=== PATIENT | male | born 1960 | race Caucasian/White ===

== ENCOUNTER 2022-09-16 09:43 | Observation (INO) ==
--- NOTE | 2022-08-18 20:48 | PAT Medication Instructions ---
Medication Instructions Date of Service August 18, 2022 Home Medications aspirin 81 mg tablet,delayed release (Adult Aspirin Regimen) 81 mg PO QPM atorvastatin 20 mg tablet 20 mg PO PM azelastine 137 mcg (0.1 %) nasal spray aerosol 1 spray intranasal QPM digoxin 125 mcg (0.125 mg) tablet 125 mcg PO QPM lisinopril 10 mg tablet 10 mg PO QPM metoprolol succinate 50 mg capsule sprinkle, ext. release 24 hr 50 mg PO QPM montelukast 10 mg tablet 10 mg PO PM Take evening before surgery aspirin 81 mg tablet,delayed release (Adult Aspirin Regimen) 81 mg PO QPM (continue as normal unless told otherwise by surgeon) atorvastatin 20 mg tablet 20 mg PO PM azelastine 137 mcg (0.1 %) nasal spray aerosol 1 spray intranasal QPM digoxin 125 mcg (0.125 mg) tablet 125 mcg PO QPM lisinopril 10 mg tablet 10 mg PO QPM metoprolol succinate 50 mg capsule sprinkle, ext. release 24 hr 50 mg PO QPM montelukast 10 mg tablet 10 mg PO PM Other Notes If you have any questions please call us at [phone] or [phone] or [phone] or [phone]
--- NOTE | 2022-08-24 15:33 | Anesthesiology Consultation ---
Date of Service August 24, 2022 Assessment & Plan (1) Encounter for pre-operative examination: - cardiology 07/14/22 [facility]: "...longstanding persistent atrial fibrillation...normal LV systolic function...no difficulty walking up hills at his home...good symptom and rate control...symptoms are stable...CHADS VAS score 1 risk of stroke low..." Outpatient joint assessment: Patient is currently scheduled for inpatient pathway. If re-evaluated pending system levels during current pandemic/surgeon requests outpatient pathway, patient is not acceptable candidate for outpatient joint program from anesthesia standpoint and pt/family. Chart Review Chart Review: Acceptable Risk for Surgery and Patient seen in Pre Admission Testing Teaching & Discussion Pre-Anesthesia Teaching/Discussion Notes: Instructed NPO after midnight before surgery, except medications with 15 cc of water. Medication instructions provided according to the PAT guidelines. History Surgery Operation Date: 09/16/22 07:00 Proposed Procedures p Right Total Knee Arthroplasty - Kaz Chery MD Height/Weight Height: 5 ft 10.5 in Weight: 97.522 kg Allergies Allergy/AdvReac Type Severity Reaction Status Date / Time Penicillins Allergy Verified 08/18/22 14:58 Medications Home Medications Medication Instructions Recorded Confirmed Last Taken aspirin 81 mg tablet,delayed 81 mg PO QPM 06/24/20 08/18/22 Unknown release (Adult Aspirin Regimen) atorvastatin 20 mg tablet 20 mg PO PM 08/18/22 08/18/22 Unknown azelastine 137 mcg (0.1 %) nasal 1 spray intranasal QPM 08/18/22 08/18/22 Unknown spray aerosol digoxin 125 mcg (0.125 mg) tablet 125 mcg PO QPM 08/18/22 08/18/22 Unknown lisinopril 10 mg tablet 10 mg PO QPM 08/18/22 08/18/22 Unknown metoprolol succinate 50 mg capsule 50 mg PO QPM 08/18/22 08/18/22 Unknown sprinkle, ext. release 24 hr montelukast 10 mg tablet 10 mg PO PM 08/18/22 08/18/22 Unknown Past Medical History Medical History (Updated 08/24/22 @ 15:44 by Gillian Hernandez PA-C) A-fib Follows with [facility] Cardiology, chronic palpitations without associated dizziness or lightheadedness HLD (hyperlipidemia) HTN (hypertension) controlled, stable per pt Prediabetes Patient denies h/o stroke, seizures, heart attack, heart failure, blood clots or blood transfusions. Exercise / Class Metabolic Activity II 4-5 Yardwork/Stairs/Walk up hill (denies CP or SOB with 1 FOS) Past Family History Family History Sister PONV (postoperative nausea and vomiting) Other Atrial fibrillation Past Surgical History Surgical History History of colonoscopy History of hernia surgery History of tonsillectomy Hx of right knee surgery Past Anesthesia History No Hx of Anesthesia Complications and No Family Hx of Anesthesia Complications History of PONV No Hx of PONV and Hx of Motion Sickness Social History Smoking Status: Former smoker Do You Dip or Chew Tobacco: No (quit 20 years ago) Smoking End Date: >30 years ago Hx Alcohol Use: Yes alcohol intake frequency: holidays/special occasions only Hx Substance Use: No substance use type: does not use Review of Systems Patient denies chest pain, shortness of breath, dyspnea on exertion, snoring, witnessed apneas, reflux, fever, chills, cough, or wheezing. Physical Exam Vital Signs Vitals BP 133/66 P 85 TEMP 98.3 SP02 98% on RA RESP 18 Physical Full cervical extension range of motion without pain TMD 3.5 finger breadths Mallampati Score 2 Dentition: intact, one crown-pt unsure of location; denies chipped or loose teeth, implants or bridges Lungs: normal respiratory effort. Clear throughout to auscultation, no adventitious breath sounds Cardiac: regular rate and rhythm, no murmurs noted Carotid arteries: negative bruit bilat Lab Results Anesthesia Preop Results Results Anesthesia Widget: WBC 7.35 K/ul (4.8-10.8) 08/24/22 Hgb 14.4 g/dl (14.0-18.0) 08/24/22 Hct 40.7 % (40.1-51.0) 08/24/22 Plt 198 K/uL (130-400) 08/24/22 Na 138 mmol/L (136-145) 08/24/22 K 3.9 mmol/L (3.5-5.1) 08/24/22 Cl 102 mmol/L (98-107) 08/24/22 CO2 31 mmol/L (21-32) 08/24/22 BUN 15 mg/dl (6-23) 08/24/22 Creat 0.88 mg/dl (0.6-1.4) 08/24/22 Glucose Level 89 mg/dl (70-99(Fasting)) 08/24/22 PT 10.9 Seconds (9.0-12.0) 08/24/22 PTT 24.4 Seconds (21.0-31.0) 08/24/22 INR 1.0 (0.9-1.1) 08/24/22 Blood Type A Negative 08/24/22 Antibody Screen NEGATIVE 08/24/22 Testing Electrocardiogram Date: 08/24/22 Afib, rate 76 bpm Left axis deviation Chest X-Ray Date: 08/24/22 The lungs are clear. Cardiac silhouette is normal in size. No pleural effusions. No pneumothorax. IMPRESSION: No acute process. Echocardiogram Date: 07/14/22 EF 55-59% No LV wall motion abnormalities Biatrial enlargement from afib Mild tricuspid regurgitation Stress Test Date: 12/19/19 Exercise Negative for inducible ischemia MPHR 111% METS 6 EF 64% COVID-19 Risk Screen Screening Information COVID-19 Screen Date: 08/24/22 Exposure 21 Days Family/Household +COVID Last 21 Days: No Exposure 10 Days Any COVID Exposure Last 10 Days: No Symptoms Last 10 Days Experienced COVID Sx Last 10 Days: No + COVID 0-90 Days COVID + in Last 0-90 Days: No
--- NOTE | 2022-09-11 18:14 | History and Physical Report ---
CHIEF COMPLAINT: Persistent progressive right knee pain and discomfort. HISTORY OF PRESENT ILLNESS: The patient is a 62-year-old gentleman I have been following for the pas t 11 years for knee arthritis. He has a history of right open meniscectomy in 1976. For the past 11 years, we have been treating him successfully with injections and medicines. This has become less s uccessful recently. He has got increased pain in his knee. It is global pain. The more he is up an d about, the more it hurts. Limps more as the day goes on. He has got catching and locking that get s pretty severe to be painful at times. Would like to have the knee fixed. PAST MEDICAL HISTORY: Significant for: 1. Long-term atrial fibrillation, on baby aspirin only. 2. Elevated cholesterol. 3. Hypertension. PAST SURGICAL HISTORY: Including. 1. Herniorrhaphy. 2. Right knee open meniscectomy in 1976. 3. Tonsillectomy. ALLERGIES: PENICILLIN, WHICH CAUSES HIVES A KID. CURRENT MEDICATIONS: Include: 1. Digoxin. 2. Lisinopril. 3. Metoprolol. 4. Atorvastatin. 5. Baby aspirin. 6. Unspecified nasal spray. 7. Singulair. SOCIAL HISTORY: A 62-year-old male. From [place]. Two drinks per week. Does not smoke. FAMILY HISTORY: Noncontributory. REVIEW OF SYSTEMS: Negative for diabetes. No chest pain, shortness of breath. No history of DVT or PE. He does have longstanding atrial fibrillation, on rate control with metoprolol. No anticoagula tion of the baby aspirin. PHYSICAL EXAMINATION: GENERAL: Shows a pleasant middle-aged male. Looks to be good health. HEENT: Benign. NECK: Supple. No lymphadenopathy. LUNGS: Clear to auscultation. HEART: Heart has an irregularly irregular rate and rhythm. ABDOMEN: Soft, nontender, and nondistended. EXTREMITIES: Grossly neurovascularly intact except as follows. Examination of the right knee reveal s the patient ambulates independently. He has got slight valgus alignment to his knee. He has got a scar over the side of his knee. He is tender both medially and laterally. Range of motion is 0 to 120. No instability. No pain with hip motion. X-RAYS: Four views of the right knee were reviewed. It shows advanced right knee lateral compartmen t degenerative joint disease. He has got complete loss of his lateral joint space on the 40-degree f lexion films. He has got osteophytes primarily laterally. ASSESSMENT: A 62-year-old male with longstanding atrial fibrillation with a history of open meniscec yoly in the past with advanced right knee degenerative joint disease. He has failed conservative andrés atment. He would like to have his right knee replaced. PLAN: We are going to proceed with right knee replacement. The risks and benefits of this procedure were explained to the patient and include but not limited to DVT, PE, , infection, neurological injury, vascular injury, bleeding problem, pain, limited range of motion, stiffness, failure to reli lupe the symptoms, incomplete relief of symptoms, need for further surgery in the future, etc. The pa tient understands and desires to proceed. Informed consent was obtained. He does have a history of atrial fibrillation, on rate control. Will use aspirin for DVT prophylaxis . We will plan on keeping him overnight and hopefully discharge on postoperative day 1. He knows to take the metoprolol and the digoxin morning of surgery and hold the Lisinopril. Job ID: [id number]
[~2022-09-16 09:43] MED LIST: ACETAMINOPHEN 500 MG TAB PO SCH; BUPIVACAINE 0.5 % 5 MG/1 ML PF 10ML VIAL ONE; BUPIVACAINE LIPOSOME/PF 266 MG, BUPIVACAINE/EPINEPHRINE 50 ML, SODIUM CHLORIDE 0.9% 30 ... INFIL SCH; CeleBREX 200 MG CAP PO SCH; FAMOTIDINE 20 MG TAB PO SCH; LR 500ML BOLUS, THEN 15ML/HR IV SCH; LR 60ML/HR IV SCH; METOCLOPRAMIDE HCL 10 MG TABLET PO SCH; ROPIVACAINE 0.5% 5 MG/ML 30 ML VIAL ONE; Scopolamine 1 MG TDSY TD SCH; TRANEXAMIC ACID 1,000 MG **IV Intra-op IV SCH; ceFAZolin 2000MG 2,000 MG/15 ML SYR IV SCH
[2022-09-16] MEDS ORDERED: fentaNYL citrate 100 MCG/2 ML VIAL ONE ×2 (09:54→11:08)
[2022-09-16] MEDS ORDERED: MIDAZOLAM HCL 1 MG/ML 2ML VIAL ONE ×2 (09:54→11:08)
--- NOTE | 2022-09-16 11:04 | History & Physical Bridge Note ---
Date of Service September 16, 2022 History & Physical Bridge Note I have examined the patient, reviewed the History & Physical and in the interval since the performance of the History & Physical I have noted the following changes of clinical significance: no changes noted
[2022-09-16] MEDS ORDERED: ATROPINE SULFATE 0.1 MG/ML 10ML SYR IV PRN (11:44)
[2022-09-16] MEDS ORDERED: fentaNYL citrate 100 MCG/2 ML VIAL IV PRN (11:44)
[2022-09-16] MEDS ORDERED: ePHEDrine sulfate 50 MG/ML AMP IV PRN (11:44)
[2022-09-16] MEDS ORDERED: ONDANSETRON INJ 2 MG/ML 2 ML VIAL IV PRN ×2 (11:44→16:53)
[2022-09-16] MEDS ORDERED: PROMETHAZINE HCL 6.25 MG in SODIUM CHLORIDE 0.9% 50 ML IV PRN (11:44)
[2022-09-16] MEDS ORDERED: BUPIVACAINE LIPOSOME 1.3% 266 MG/20 ML VIAL ONE (11:47)
[2022-09-16] MEDS ORDERED: BUPIVACAINE/EPINEPHRINE 0.25% 1:200,000 30 ML VIAL ONE (11:47)
[2022-09-16] MEDS ORDERED: SODIUM CHLORIDE 0.9% PF 50 ML VIAL ONE (11:47)
[2022-09-16] MEDS ORDERED: BUPIVACAINE 0.25% 30 ML VIAL ONE (11:51)
[2022-09-16] MEDS ORDERED: EPINEPHrine INJ 1 MG/ML AMP ONE (11:51)
[2022-09-16] MEDS ORDERED: DEXAMETHASONE SOD INJ 4 MG/ML VIAL ONE (11:51)
[2022-09-16] MEDS ORDERED: PROPOFOL IV EMULSION 10 MG/ML 100 ML VIAL IV ONE (12:27)
[2022-09-16] MEDS ORDERED: PROPOFOL IV EMULSION 10 MG/ML 20 ML VIAL IV ONE (14:38)
[2022-09-16] MEDS ORDERED: LIDOCAINE 2% MPF LOCAL 5 ML VIAL INFIL ONE (14:38)
--- NOTE | 2022-09-16 15:36 | Operative Report ---
PG Post Operative Report Pre & Post Diagnosis Operation Date: 09/16/22 12:00 Pre-Op Diagnosis: Right Knee Advanced Degenerative Joint Disease Post-Op Diagnosis: Right Knee Advanced Degenerative Joint Disease I identified the patient and participated in the time-out.: Yes Procedure Operation Date: 09/16/22 12:00 Actual Procedures p Right Total Knee Arthroplasty(Right) - Kaz Chery MD Surgeon Kaz Chery MD Electrical Subcontractor Olivier Jackson PA-C Estimated Blood Loss 50 Findings Consistent with Post-Op Diagnosis Operative findings revealed advanced right knee DJD. He had a pretty extensive grade 4 lateral compartment disease. Spotty changes in the medial and patellofemoral compartments. He had a large knee joint effusion. His synovium was blood-tinged suggestive of some bleeding. There was a fairly large loose body in the knee as well. This looked to come from the lateral femoral condyle. Fluids 1300 cc Specimens Right knee sent for pathology. Drains None Anesthesia Type Spinal MAC Complications none Disposition Accompanied Patient To Recovery: No Indications Patient is a 62-year-old fairly active gentleman has had a long history of right knee problems. He had a right open meniscectomy in the 70s. I been following for the past 10+ years treating with the medicines and injections. This became less successful over time. Knee started to swell up more and become more painful. X-rays show advanced lateral compartment arthritis. He elected proceed with surgical treatment. Description of Procedure Operative implants consist of: The 1 Biomet Vanguard size 75 right posterior stabilized femoral component. 2. Biomet size 75 tibial tray. 3. 10 mm posterior stabilized polyethylene insert. 4. 31 x 8 all Paller patella. The patient was taken the operating, identified, placed on the operating table supine position protectors were properly padded. IV antibiotics arrived by anesthesia team. A spinal anesthetic and abductor canal block had provided in the holding area. A Green catheter was placed in sterile fashion. Right thigh tent was then placed in the right lower extremities then prepped and draped in usual sterile fashion. The right leg was elevated exsanguinated with use of an Esmarch in terms playset 300 mmHg. An anterior approach of the right knee was then performed to longitudinal incision centered over the patella. Sharp dissection Through subcutaneous tissue down the extensor mechanism. A medial parapatellar arthrotomy incision was made. Some subperiosteal dissection was carried out medially. The fat pad was dissected from Neath patella tendon. Lateral patellofemoral ligament was released. Patella subluxated laterally and the knee was flexed. The osteophytes were taken off distal femur. The ACL and PCL released from the distal femur the tibia subluxated anteriorly. External tibial alignment jig was then placed in the interface the tibia and adjusted 14 mm medially. Proximal tibial cut was made to remove 3 to 4 mm of bone from the medial side. The tibia sized to a size 75. Attention drawn the femur. Of the distal femur stem with a sharp drill. Intramedullary canal was suction. A right 5 degree valgus cutting guide was placed. This femoral cutting block was pinned in place. Distal femoral cut was made to take an additional 3 mm bone off distal femur. The femur was then sized to a size 75. We did downsize this slightly. The AP cutting block was pinned parallel to the epicondylar axis which was 4 degrees of external rotation. Anterior cut, anterior chamfer, posterior cut, posterior chamfer cuts were made. The box cutting guide was placed in just slight lateral and the box cut was made. The knee was flexed. The remnants of the medial and lateral menisci were excised. The osteophytes were taken off the posterior aspect the femur. Trial femoral component was placed. The tibial tray was pinned in maximum external rotation and the drill and stem punch were used to create defect in proximal tibia for the tibial tray. The knee was then trialed and the 10 mm insert fit most appropriately. Attention drawn the patella. The patella was cleaned of all soft tissues. Patella thickness measured 23 mm in thickness and was cut down to 14. It was sized to a size 31 patella. The lug holes were drilled for the 31 patella. The lateral osteophytes removed. Patella button was placed. Knee was taken through range of motion patella tracked nicely with no thumbs test. Attention drawn to placing permanent components. Nupathe all trial components were removed. Bone plug was placed in the distal femur limit blood loss. Double batch Palacos G cement was mixed. [employer] size 75 right posterior stabilized femoral component, size 75 tibial tray, a 10 mm posterior stabilized polyethylene insert, and a 31 x 8 all Paller patella then cemented in place. The knee was brought into 2 full extension until cement hardened. Final cement check was then performed. The pericapsular tissues were injected with total of 100 cc of combination of 20 cc of Exparel, 30 cc normal saline, 50 cc of quarter percent Marcaine with epinephrine. The tourniquet was then let down for final tourniquet time of 59 minutes. Hemostasis reduced electrocautery. Extensor mechanism closed with combination 1 PDS suture #1 Vicryl suture in [id number] fashion. Extensor mechanism checked found to be intact the subcutaneous tissue then closed with 2 Dexon suture in a buried interrupted fashion skin was closed skin francisco. Leg was then cleaned and dried a sterile dressing was Xeroform, 4 x 4's, sterile cast padding, Mainor bandage were applied. Patient then transferred to the recovery room in stable condition. Patient tolerated procedure well no complications. Olivier Jackson, my physician assistant spa director, was present for the entire procedure. His assistance was required for proper patient positioning, prepping and draping, surgical exposure, retraction, perform the technical details the operation, placement of implants, closure of the wound and placement of sterile bandage. I attest to the content of the Intraoperative Record and any orders documented therein. Any exceptions are noted below.
--- NOTE | 2022-09-16 16:06 | Anesthesiology Progress Note ---
Date of Service September 16, 2022 Anesthesia Post Procedure Vital Signs Vital Signs: Temp Pulse Resp BP Pulse Ox O2 Del Method O2 Flow Rate 09/16/22 16:00 92 H 15 146/89 H 100 Room Air 09/16/22 15:50 86 16 158/84 H 95 Room Air 09/16/22 15:40 88 19 134/82 97 Room Air 09/16/22 15:30 36.7 C 98 H 17 137/84 97 Oxymask 5 09/16/22 10:17 36.9 C 86 20 162/97 H 97 Room Air Transfer of Care Handoff Completed per policy Notes Mental Status: alert / awake / arousable Patient Amnestic to Procedure: Yes Nausea / Vomiting: adequately controlled Pain: adequately controlled Airway Patency, RR, SpO2: stable & adequate BP & HR: stable & adequate Hydration State: stable & adequate Neuraxial Anesthesia: was administered and sensory block is resolving Anesthetic Complications: no major complications apparent
[2022-09-16] MEDS ORDERED: HYDROmorphone INJ 0.5 MG/0.5 ML SYR IV PRN (16:53)
[2022-09-16] MEDS ORDERED: bisacodyL 10 MG SUPP PR PRN (16:53)
[2022-09-16] MEDS ORDERED: ALUMINUM/MAGNESIUM SUSP 30 ML UDC PO PRN (16:53)
[2022-09-16] MEDS ORDERED: NALOXONE HCL 0.4 MG/1 ML VIAL/CARP IV PRN (16:53)
[2022-09-16] MEDS ORDERED: METOCLOPRAMIDE HCL INJ 5 MG/ML 2 ML VIAL IV PRN (16:53)
[2022-09-16] MEDS ORDERED: SODIUM CHLORIDE 0.9% 1000ML 1,000 ML IV SCH (16:53)
[2022-09-16] MEDS ORDERED: oxyCODONE HCL IR 5 MG TAB (IMMEDIATE RELEASE) PO PRN (16:53)
[2022-09-16] MEDS ORDERED: MAGNESIUM HYDROXIDE SUSP 30 ML UDC PO PRN (16:53)
--- NOTE | 2022-09-16 16:55 | XRay Report ---
RIGHT KNEE 2 VIEWS History: Right total knee arthroplasty. Degenerative arthritis. Postop. FINDINGS: The patient is status post a right total knee arthroplasty. The hardware is intact. No frac ture or dislocation. Skin francisco are in place. IMPRESSION: Right total knee arthroplasty. No evidence for hardware complication. ACT 112: Negative or not required by law. Electronically signed by: Eddie Oviedo M.D. 09/16/2022 4:53 PM
[2022-09-16] MEDS: Scopolamine CHECK PATCH PLACEMENT SCH ×2 (17:03→23:52)
[2022-09-16] MEDS ORDERED: ONDANSETRON 4 MG OD TAB PO PRN (17:04)
[2022-09-16] MEDS: KETOROLAC 30 MG/ML VIAL IV SCH ×2 (17:46→23:52)
[2022-09-16] MEDS: ASCORBIC ACID 500 MG TAB PO SCH (17:46)
--- NOTE | 2022-09-16 19:19 | Progress Notes ---
SUBJECTIVE: A 62-year-old gentleman postop from right knee replacement. He is doing well. He is re ally not having any pain yet. No chest pain, no shortness of breath. Not feeling dizzy or lighthead ed. OBJECTIVE: VITAL SIGNS: Temperature is 36.5. Vital signs are stable. GENERAL: Shows a pleasant middle-aged male. He is sitting up in bed and reading, looks comfortable. LUNGS: Clear to auscultation. HEART: Regular rate and rhythm. ABDOMEN: Soft, nontender, nondistended. EXTREMITIES: Grossly neurovascularly intact except as follows: Examination of the right leg reveals the leg to be well aligned. Dressing is clean, dry, and intact. He can dorsiflex and plantarflex h is foot appropriately. He is neurologically intact. X-RAYS: X-rays of the right knee from recovery room were reviewed. They show right cemented posteri or stabilized total knee arthroplasty. Components looked to be in good position. No signs of probl ems. ASSESSMENT: A 62-year-old gentleman postop from a right knee replacement, doing well. Pain is controlled. He is neurologically intact. PLAN: 1. DVT prophylaxis includes thigh-high TEDs, SCDs, and aspirin twice a day. 2. PT, OT, weightbear as tolerated. Right total knee protocol. 3. Pain control, doing okay with current pain regimen. 4. IV antibiotics x24 hours. 5. Disposition: Plan to discharge home with some home health likely tomorrow if he does okay in the rapy. Job ID: [id number]
[2022-09-16] MEDS ORDERED: SENNA 8.6 MG TAB PO SCH (21:00)
[2022-09-16] MEDS ORDERED: MONTELUKAST SODIUM 10 MG TABLET PO SCH (21:00)
[2022-09-16] MEDS ORDERED: lisinopril 10 MG TAB PO SCH (21:00)
[2022-09-16] MEDS ORDERED: DIGOXIN 0.125 MG TAB PO SCH (21:00)
[2022-09-16] MEDS ORDERED: METOPROLOL SUCC 50MG EXT REL TAB PO SCH (21:00)
[2022-09-16] MEDS ORDERED: AZELASTINE HCL 0.1% NASAL 200 SPRAYS/27,400 MCG BTL NAE SCH (21:00)
[2022-09-16] MEDS ORDERED: ATORVASTATIN 20 MG TAB PO SCH (21:00)
[2022-09-16] MEDS: ASPIRIN 81 MG ECTAB PO SCH (21:27)
[2022-09-16] MEDS: DOCUSATE SODIUM 100 MG CAP PO SCH (21:28)
[2022-09-16] MEDS ORDERED: TRANEXAMIC ACID / 0.7% NACL 1,000 MG/100 ML BAG IV SCH (21:30)
[2022-09-16] MEDS: ACETAMINOPHEN 500 MG TAB PO SCH (21:30)
[2022-09-16] MEDS: TAPENTADOL HCL ER 50 MG TABCR PO SCH (21:31)
[2022-09-16] MEDS: ceFAZolin 2000MG 2,000 MG/15 ML SYR IV SCH (21:31)
[2022-09-17] MEDS: traMADol HCL 50 MG TABLET PO PRN ×2 (02:09→10:48)
[2022-09-17] MEDS: KETOROLAC 30 MG/ML VIAL IV SCH (05:54)
[2022-09-17] MEDS: ceFAZolin 2000MG 2,000 MG/15 ML SYR IV SCH (05:54)
[2022-09-17] MEDS: ACETAMINOPHEN 500 MG TAB PO SCH (05:54)
[2022-09-17 06:30] LABS: Hematocrit (blood only) 37.6 % (40.1-51.0); Hemoglobin 13.1 g/dl (14.0-18.0); Mean Corpuscular Hemoglobin 30.8 pg (25.0-34.0); Mean Corpuscular Hgb Conc 34.8 g/dL (32.0-36.0); Mean Corpuscular Volume 88.3 fL (80.0-100.0); Mean Platelet Volume 9.7 fL (9.4-12.4); Platelet Count 233 K/uL (130-400); RDW Coefficient of Variation 11.7 % (11.5-14.5); RDW Standard Deviation 37.4 fL (36.4-46.3); Red Blood Count 4.26 M/uL (4.63-6.08); White Blood Count 13.91 K/ul (4.8-10.8)
[2022-09-17 07:17] LABS: BUN Creatinine Ratio 17.4 (10-20); Calcium 8.2 mg/dl (8.5-10.1); Est GFR (African American) 102.9 ml/min; Est GFR (Non-African American) 88.8 ml/min; Potassium 4.1 mmol/L (3.5-5.1)
[2022-09-17] MEDS ORDERED: dexAMETHasone 10 MG in SYRINGE 0 ML IV SCH (08:00)
--- NOTE | 2022-09-17 08:30 | Progress Notes ---
SUBJECTIVE: A 62-year-old gentleman, postoperative day 1 from a right knee replaced. He is doing we ll. Had good night. Pain is controlled. No chest pain or shortness of breath. Not feeling dizzy o r lightheaded. OBJECTIVE: VITAL SIGNS: Temperature 36.4. Vital signs are stable. GENERAL: Shows a pleasant middle-aged male. He is sitting up in bed and looks comfortable. EXTREMITIES: Examination of the right knee reveals the leg to be well aligned. Dressing is clean, d ry and intact. He can dorsiflex and plantarflex his foot appropriately. He is neurologically intact . LABORATORY DATA: Hemoglobin 13.1, hematocrit 37.6. Electrolytes are stable. ASSESSMENT: A 62-year-old gentleman, postoperative day 1 from a right knee replacement, doing well. Pain is controlled. He is neurologically intact. PLAN: 1. DVT prophylaxis includes thigh-high TEDs, SCDs, and aspirin twice a day. 2. PT/OT, weightbear as tolerated. Right total knee protocol. 3. Pain control, doing okay with current pain regimen. 4. Disposition: Plan to discharge to home with some home health after therapy today. Job ID: [id number]
[2022-09-17] MEDS: ASPIRIN 81 MG ECTAB PO SCH (08:33)
[2022-09-17] MEDS: ASCORBIC ACID 500 MG TAB PO SCH (08:33)
[2022-09-17] MEDS: Scopolamine CHECK PATCH PLACEMENT SCH (08:33)
[2022-09-17] MEDS: DOCUSATE SODIUM 100 MG CAP PO SCH (08:33)
[2022-09-17] MEDS ORDERED: TAMSULOSIN HCL 0.4 MG CAP PO SCH (09:00)
[2022-09-17] MEDS ORDERED: DOCUSATE SODIUM/SENNA 50/8.6MG TAB PO SCH (09:00)
[2022-09-17] MEDS ORDERED: MULTIVITAMIN TAB PO SCH (09:00)
[2022-09-17] MEDS: TAPENTADOL HCL ER 50 MG TABCR PO SCH (09:16)
--- NOTE | 2022-09-19 07:36 | Discharge Summary ---
Date of Service September 19, 2022 Discharge Data Procedures Performed Operation Date: 09/16/22 12:00 Actual Procedures p Right Total Knee Arthroplasty(Right) - Kaz Chery MD Hospital Course (1) Status post total right knee replacement: This is a 62 year old patient admitted on 09/16/22 and underwent total knee arthroplasty. He tolerated the procedure well and there were no complications. Transferred to the PACU post op and later to the orthopedic floor for further care. He was given ancef for antibiotic prophylaxis. He was also given MAYRA stockings, SCDs, and aspirin for DVT prophylaxis. Hemoglobin, hematocrit, and vital signs were monitored during his hospital stay and remained stable. Did not require any blood transfusions. There were no complications during his hospital stay. By post op day #1 the patient was tolerating a regular diet, pain was reasonably controlled with oral pain medicine, and he was participating in physical therapy. On post op day #1 the patient was discharged home and set up with home health care. He was given printed discharge instructions including prescriptions for extra strength tylenol, aspirin, cefadroxil, ketorolac, zofran, senokot, flomax, and tramadol. Continue physical therapy, weight bearing as tolerated. Continue MAYRA stockings. Follow up approximately 2 weeks post op or sooner if there are problems or concerns. Coding Level of Care Code None Diagnoses Status post total right knee replacement Z96.651
== END 2022-09-17 12:31 | disposition home health service (06) ==
LOC: 3E 09:43 → ASU 09:43